=== PATIENT | male | born 1950 | race Caucasian/White ===

== ENCOUNTER 2018-12-01 08:52 | Emergency (ER) | payer MEDICARE ==
--- NOTE | 2018-12-01 09:38 | UC ---
Lower Extremity/Ankle HPI - HPI Summary HPI Summary: 68 yo gentleman presents with R foot pain, s/p rolling ankle / foot last week ( approx 6 days ago). C/o pain, and bruising, wants foot to be checked. No other pain c/o's. - History of Current Complaint Chief Complaint: UCLowerExtremity Stated Complaint: FOOT COMPLAINT Time Seen by Provider: 12/01/18 09:35 Hx Obtained From: Patient Pain Intensity: 4 - Allergies/Home Medications Allergies/Adverse Reactions: Allergies Allergy/AdvReac Type Severity Reaction Status Date / Time No Known Allergies Allergy Verified 12/01/18 09:01 PMH/Surg Hx/FS Hx/Imm Hx Previously Healthy: Yes - Surgical History Surgical History: Yes Surgery Procedure, Year, and Place: Ruptured intestinecolostomy with subsequent reversal 2012. - Family History Known Family History: Positive: None - Social History Alcohol Use: Weekly Substance Use Type: None Smoking Status (MU): Light Every Day Tobacco Smoker Type: Cigarettes Amount Used/How Often: 1 PPD "on and off my whole life." Review of Systems All Other Systems Reviewed And Are Negative: Yes Constitutional: Positive: Negative Skin: Positive: Negative Eyes: Positive: Negative ENT: Positive: Negative Respiratory: Positive: Negative Cardiovascular: Positive: Negative Gastrointestinal: Positive: Negative Genitourinary: Positive: Negative Motor: Positive: Other - see hpi Neurovascular: Positive: Other - see hpi Musculoskeletal: Positive: Arthralgia Neurological: Positive: Negative Psychological: Positive: Negative Is Patient Immunocompromised?: No Physical Exam Triage Information Reviewed: Yes Appearance: Well-Appearing, Well-Nourished Vital Signs: Initial Vital Signs Temp 98.1 F 12/01/18 08:57 Pulse 70 12/01/18 08:57 Resp 18 12/01/18 08:57 BP 141/68 12/01/18 08:57 Pulse Ox 98 12/01/18 08:57 Vital Signs Reviewed: Yes Eye Exam: Normal ENT Exam: Normal Neck exam: Normal - no c/o pain Respiratory Exam: Normal Cardiovascular Exam: Normal Abdominal Exam: Normal Musculoskeletal: Positive: Other: Neurological Exam: Normal - grossly nonfocal, distal sens present light touch Psychological Exam: Normal - conversing easily and appropriately Skin Exam: Other - distal R foot edema and ecchymosis. Tender distal 3-4 MT. Mild tender lat foot. CR is good pt palpable, dp light palpable + hemosiderosis mild RLE Lower Extremity Course/Dx - Course Course Of Treatment: Reviewed xrays with pt. Reviewed need for non-weightbearing. 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 Will give crutches and cam boot. He will f/u with orthopedics early this week re correction coa / tx plan. Aware that this will not heal without orthopedic care and offloading. - Differential Dx/Diagnosis Provider Diagnosis: Foot fracture, right Discharge - Sign-Out/Discharge Documenting (check all that apply): Patient Departure All imaging exams completed and their final reports reviewed: Yes - Discharge Plan Condition: Stable Disposition: HOME Patient Education Materials: Crutch Instructions (ED), Foot Fracture in Adults (ED) Referrals: Emma Wetzel MD [Primary Care Provider] - Laci Quinonez MD [Medical Doctor] - Additional Instructions: Follow up with orthopedic surgeon early this week. No weight bearing is recommended. If you must bear weight, use cam boot. Seek medical attention for worse or new problems. - Billing Disposition and Condition Condition: STABLE Disposition: Home
[2018-12-01 11:26] VITALS: BP 138/66
== END 2018-12-01 11:10 | disposition home or self-care (01) ==
LOC: UCEAST 08:52
DX: S92.354A Nondisplaced fracture of fifth metatarsal bone, right foot, initial encounter for closed fracture (principal); X50.1XXA Overexertion from prolonged static or awkward postures, initial encounter; Y92.9 Unspecified place or not applicable; F17.210 Nicotine dependence, cigarettes, uncomplicated
CPT/HCPCS: 99212; G0463